=== PATIENT | female | born 1980 | race Caucasian/White ===

== ENCOUNTER 2018-11-07 04:56 | Emergency (ER) | payer MEDICAID ==
[~2018-11-07] VITALS: Ht 154.9 cm; Wt 64.7 kg
[2018-11-07] MEDS ORDERED: FLUORESCEIN OPHTHALMIC 1 MG STRIP ONE (05:13)
[2018-11-07] MEDS ORDERED: PROPARACAINE OPHTH 0.5%, 15ML ONE (05:13)
[2018-11-07] MEDS ORDERED: CEFTRIAXONE 250 MG IM ONE (05:30)
[2018-11-07] MEDS ORDERED: AZITHROMYCIN 250 MG TABLET PO ONE (05:30)
[2018-11-07] MEDS ORDERED: CEFTRIAXONE 250 MG ONE (05:31)
[2018-11-07] MEDS ORDERED: AZITHROMYCIN 250 MG TABLET ONE (05:32)
[2018-11-07 05:55] VITALS: BP 133/87
== END 2018-11-07 05:56 | disposition home or self-care (01) ==
LOC: ED 05:13
DX: A54.31 Gonococcal conjunctivitis (principal); H10.022 Other mucopurulent conjunctivitis, left eye; Z90.49 Acquired absence of other specified parts of digestive tract
CPT/HCPCS: 96372; 99283; J0696